=== PATIENT | male | born 1955 | race Caucasian/White ===

== ENCOUNTER 2017-05-21 17:05 | Emergency (ER) | payer OTHER ==
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
[2017-05-21 17:27] VITALS: BP 143/96; PULSE 60; TEMP 98.8; BMI 32.3
[2017-05-21] MEDS ORDERED: CYCLOBENZAPRINE HCL 10 MG TABLET (FP) PO ONE (18:46)
[2017-05-21] MEDS ORDERED: IBUPROFEN 400 MG TABLET (FP) PO ONE ×2 (18:48→18:52)
[2017-05-21] MEDS ORDERED: CYCLOBENZAPRINE HCL 10 MG TABLET (FP) ONE (18:52)
== END 2017-05-21 19:08 | disposition home or self-care (01) ==
LOC: FER 17:05
DX: S16.1XXA Strain of muscle, fascia and tendon at neck level, initial encounter (principal); R51 Headache; V43.52XA Car driver injured in collision with other type car in traffic accident, initial encounter; Y93.89 Activity, other specified; Y92.410 Unspecified street and highway as the place of occurrence of the external cause
CPT/HCPCS: 70450-TC; 72050-TC; 99281-25

== ENCOUNTER 2023-07-03 15:30 | Emergency (ER) | payer OTHER, MEDICARE ==
[2023-07-03 15:46] VITALS: BP 130/87; PULSE 76; RESP 15; TEMP 97.9; BMI 26.4
== END 2023-07-03 16:59 | disposition home or self-care (01) ==
LOC: FER 15:30
DX: K59.00 Constipation, unspecified (principal)
CPT/HCPCS: 99281-25

== ENCOUNTER 2023-07-08 19:08 | Emergency (ER) | payer OTHER, MEDICARE ==
[2023-07-08 19:16] VITALS: BP 148/104; RESP 18; TEMP 99.4; BMI 26.4
[2023-07-08 20:08] LABS: HEMATOCRIT 42.5 % (35.4-49); HEMOGLOBIN 14.8 G/dL (11.7-16.9); MCH 33.9 pg (25.7-33.7); MCHC 34.9 g/dl (32.0-35.9); MEAN PLT VOLUME 9.2 fl (7.5-11.1); PLATELET COUNT 220.3 10^3/uL (134-434); RBC 4.38 10^6/uL (4.00-5.60); RDW 13.4 % (11.9-15.9); WHITE BLOOD COUNT 5.7 10^3/uL (4.0-10.8)
[2023-07-08 20:19] LABS: PLATELET ESTIMATE ADEQUATE
[2023-07-08 20:22] LABS: ALBUMIN 4.6 g/dl (3.4-5.0); BILIRUBIN,TOTAL 0.8 mg/dl (0.2-1); CALCIUM 9.5 mg/dl (8.5-10.1); CREATININE 1.1 mg/dl (0.6-1.3); POTASSIUM 4.3 mmol/L (3.5-5.1); TOT PROT 7.1 g/dl (6.4-8.2)
[2023-07-08 21:59] VITALS: PULSE 85
== END 2023-07-08 23:22 | disposition home or self-care (01) ==
LOC: FER 19:08
DX: R42 Dizziness and giddiness (principal)
CPT/HCPCS: 36415; 71045-TC-FY; 80053; 84484; 85025; 85730; 86850; 86900; 86901; 93005; 99285-25